=== PATIENT | female | born 1955 | race Caucasian/White ===

== ENCOUNTER 2018-10-04 01:05 | Outpatient (CLI) | payer OTHER, SELFPAY ==
--- NOTE | 2018-10-04 11:29 | DI.MAMMO_ITS ---
SYMPTOMS/DIAGNOSIS: SCREENING, Z12.31 MAMMOGRAMS: Mammograms were interpreted according to the usual protocol including computer analysis with CAD system, tomosynthesis and C view imaging. The breast tissue is composed of scattered fibroglandular densities. There is no dominant mass. There are no suspicious calcifications and there has been no significant interval change when compared with prior images. SUMMARY: No evidence of malignancy, category 1. Yearly screening mammography is recommended. Breast density category B. SA ASSESSMENT OF FINDINGS: Negative. Category 1. Patient will receive a letter notifying them of these results. BI-RADS category B. There are scattered areas of fibroglandular density.
== END 2018-10-04 01:25 ==
DX: Z12.31 Encounter for screening mammogram for malignant neoplasm of breast (principal)
CPT/HCPCS: 77063; 77067

== ENCOUNTER 2018-10-12 01:30 | Outpatient (CLI) | payer OTHER, SELFPAY ==
[2018-10-12 11:31] LABS: ALT 21 U/L (12-78); AST 26 U/L (15-37); Albumin 3.6 g/dL (3.4-5.0); Alkaline Phosphatase 97 U/L (46-116); Anion Gap 7.8 mmol/L (3-11); BUN 17 mg/dL (7-18); Bilirubin, Total 0.6 mg/dL (0.2-1.0); CO2 29.2 mmol/L (21.0-32.0); CREATININE 0.89 mg/dL (0.55-1.02); Calcium 8.9 mg/dL (8.5-10.1); Chloride 105 mmol/L (98-107); Glucose 92 mg/dL (70-100); Potassium 3.8 mmol/L (3.5-5.1); Sodium 142 mmol/L (136-145); TSH (W/Ref FT4) 3.33 uIU/mL (0.358-3.74); Total Protein 6.6 g/dL (6.4-8.2)
== END 2018-10-12 01:50 ==
DX: E03.9 Hypothyroidism, unspecified (principal); E55.9 Vitamin D deficiency, unspecified; Z00.00 Encounter for general adult medical examination without abnormal findings
CPT/HCPCS: 36415; 80053; 84443

== ENCOUNTER 2019-10-25 01:59 | Outpatient (CLI) | payer OTHER, SELFPAY ==
[2019-10-25 11:57] LABS: ALT 21 U/L (14-59); AST 29 U/L (15-37); Albumin 3.5 g/dL (3.4-5.0); Alkaline Phosphatase 95 U/L (46-116); Anion Gap 5.7 mmol/L (3-11); BUN 12 mg/dL (7-18); Bilirubin, Total 0.4 mg/dL (0.2-1.0); CO2 28.3 mmol/L (21.0-32.0); CREATININE 0.78 mg/dL (0.55-1.02); Calcium 8.8 mg/dL (8.5-10.1); Chloride 105 mmol/L (98-107); Glucose 95 mg/dL (74-106); Potassium 4.1 mmol/L (3.5-5.1); Sodium 139 mmol/L (136-145); TSH (W/Ref FT4) 2.92 uIU/mL (0.36-3.74); Total Protein 6.4 g/dL (6.4-8.2)
== END 2019-10-25 02:19 ==
DX: E03.9 Hypothyroidism, unspecified (principal); G47.00 Insomnia, unspecified; Z00.00 Encounter for general adult medical examination without abnormal findings
CPT/HCPCS: 36415; 80053; 84443

== ENCOUNTER 2020-10-09 02:19 | Outpatient (CLI) | payer OTHER, SELFPAY ==
[2020-10-09 10:28] LABS: ALT 25 U/L (14-59); AST 30 U/L (15-37); Albumin 3.8 g/dL (3.4-5.0); Alkaline Phosphatase 101 U/L (46-116); Anion Gap 7.1 mmol/L (3-11); BUN 18 mg/dL (7-18); Bilirubin, Total 0.6 mg/dL (0.2-1.0); CO2 28.9 mmol/L (21.0-32.0); CREATININE 0.9 mg/dL (0.55-1.02); Calcium 8.9 mg/dL (8.5-10.1); Calculated LDL 96 mg/dL (<100); Chloride 107 mmol/L (98-107); Cholesterol 172 mg/dL (<200); Glucose 91 mg/dL (74-106); HDL Cholesterol 67 mg/dL (40-60); Potassium 4.4 mmol/L (3.5-5.1); Sodium 143 mmol/L (136-145); TSH (W/Ref FT4) 1.94 uIU/mL (0.36-3.74); Total Protein 6.9 g/dL (6.4-8.2); Triglyceride 47 mg/dL (<150); Vitamin B12 299 pg/mL (193-986)
== END 2020-10-09 02:20 | disposition home or self-care (01) ==
LOC: LBO 02:19
DX: E03.9 Hypothyroidism, unspecified (principal); D51.8 Other vitamin B12 deficiency anemias; E55.9 Vitamin D deficiency, unspecified; F32.9 Major depressive disorder, single episode, unspecified; Z13.220 Encounter for screening for lipoid disorders; Z00.00 Encounter for general adult medical examination without abnormal findings
CPT/HCPCS: 36415; 80053; 80061; 82306; 82607; 84443

== ENCOUNTER 2020-10-15 01:35 | Outpatient (CLI) | payer OTHER, SELFPAY ==
--- NOTE | 2020-10-15 06:30 | DI.MAMMO_ITS ---
Exam(s) MAMMO SCREENING EXAM: MAMMO SCREENING CLINICAL HISTORY: screening,Z12.39 TECHNIQUE: Bilateral full field digital CC and MLO mammographic images were obtained with 3D tomosyn thesis and utilizing computer aided detection (CAD). COMPARISON: Available for comparison. FINDINGS: Masses/Architectural Distortion: None seen. Microcalcifications: No suspicious pleomorphic-type are seen. Skin Thickening/Nipple Retraction: None. IMPRESSION: 1. No significant interval change with no specific features of malignancy noted. 2. Unless there is more urgent need, screening mammography is recommended, as per [employer] guidelines. BI-RADS Category 1 - Negative Breast Density - Category B - Scattered areas of fibroglandular density Breast density category C or D implies that the patient has dense breast tissue. Dense breast tissue is very common and is not abnormal but dense breast tissue can make it harder to find cancer on a ma mmogram. Also, dense breast tissue may increase their breast cancer risk. This information about the result of the mammogram report was provided to the patient to raise their awareness. Use this report when you speak with the patient about their risks for breast cancer, which includes their family hist ory. At that time, you may recommend for more screening tests (Ultrasound or MRI) as they might be us eful based on their risk. A negative radiographic report should not delay biopsy if a dominant or clinically suspicious mass is present. Up to ten percent of cancers are not identified on mammography. A negative report may reinforce clinical impression. Adenosis and dense breasts may obscure an underlying neoplasm. False positive reports average 6 to 10%. Patient will receive a letter notifying them of these results.
== END 2020-10-15 01:55 ==
DX: Z12.31 Encounter for screening mammogram for malignant neoplasm of breast (principal)
CPT/HCPCS: 77063; 77067

== ENCOUNTER 2021-10-15 03:55 | Outpatient (CLI) | payer MEDICARE, BC, SELFPAY ==
[2021-10-15 11:53] LABS: ALT 21 U/L (14-59); AST 26 U/L (15-37); Albumin 3.8 g/dL (3.4-5.0); Alkaline Phosphatase 107 U/L (46-116); Anion Gap 6.4 mmol/L (3-11); BUN 15 mg/dL (7-18); Bilirubin, Total 0.5 mg/dL (0.2-1.0); CO2 28.6 mmol/L (21.0-32.0); CREATININE 0.9 mg/dL (0.55-1.02); Calcium 8.7 mg/dL (8.5-10.1); Chloride 105 mmol/L (98-107); Glucose 97 mg/dL (74-106); Potassium 3.8 mmol/L (3.5-5.1); Sodium 140 mmol/L (136-145); Total Protein 6.8 g/dL (6.4-8.2)
== END 2021-10-15 03:56 | disposition home or self-care (01) ==
LOC: LBO 03:55
DX: E03.9 Hypothyroidism, unspecified (principal)
CPT/HCPCS: 36415; 80053; 84443

== ENCOUNTER 2021-10-22 00:17 | Outpatient (CLI) | payer MEDICARE, BC, SELFPAY ==
--- NOTE | 2021-10-22 08:00 | DI.MAMMO_ITS ---
Exam(s) MAMMO SCREENING EXAM: MAMMO SCREENING CLINICAL HISTORY: screening,z12.39 TECHNIQUE: Mammograms were interpreted according to the usual protocol including computer analysis w [facility] CAD system, tomosynthesis and C-view imaging. COMPARISON: FINDINGS: The breasts are heterogeneously dense. No dominant mass or clumped microcalcification is identified in either breast. The current examination is compared with previous examinations including October 2020 and there has been no gross interval change in appearance comparison with prior studies. IMPRESSION: No specific evidence of malignancy at this time. Routine screening examinations are suggested at yea rly intervals in this age group according to the ACS ACR guidelines. BI-RADS Category 1 - Negative Breast Density - Category C - Heterogeneously dense
== END 2021-10-22 00:37 ==
DX: Z12.31 Encounter for screening mammogram for malignant neoplasm of breast (principal)
CPT/HCPCS: 77063; 77067

== ENCOUNTER 2022-10-12 10:16 | Outpatient (CLI) | payer MEDICARE, BC, SELFPAY ==
[2022-10-12 12:55] LABS: TSH (W/Ref FT4) 1.42 uIU/mL (0.36-3.74)
== END 2022-10-12 10:17 | disposition home or self-care (01) ==
PROVIDERS: PCP Nurse Practitioner Family; Referring Provider Nurse Practitioner Family; Visit Provider Nurse Practitioner Family
DX: E03.9 Hypothyroidism, unspecified (principal)
CPT/HCPCS: 36415; 84443

== ENCOUNTER 2023-10-18 12:54 | Outpatient (REF) | payer MEDICARE, BC, SELFPAY ==
[2023-10-18 13:15] LABS: TSH (W/Ref FT4) 3.71 uIU/mL (0.36-3.74)
== END 2023-10-18 12:55 | disposition home or self-care (01) ==
LOC: LBN 12:54
PROVIDERS: PCP Nurse Practitioner Family; Visit Provider Nurse Practitioner Family
DX: E03.9 Hypothyroidism, unspecified (principal)
CPT/HCPCS: 84443

== ENCOUNTER 2024-09-06 01:37 | Outpatient (CLI) | payer MEDICARE, BC, SELFPAY ==
--- NOTE | 2024-09-06 08:04 | DI.DEXA_ITS ---
Exam(s) XR DEXA BONE DENSITY W/WO JEAN MARIE EXAM: XR DEXA BONE DENSITY W/WO JEAN MARIE CLINICAL HISTORY: screening for osteoporosis in postmenopausal status,z78.0 TECHNIQUE: [employer] Horizon C densitometer analysis of left hip, lumbar spine and left forearm. Lat eral survey image of the thoracic and lumbar spine. COMPARISON: 2005 FINDINGS: Lateral view of the thoracic and lumbar spine shows no evidence of compression fractures. There are advanced degenerative disc changes with endplate osteophytes and sclerosis which elevate the bone min eral density measurements. Bone mineral density measurements of the lumbar spine correspond to a total T-score of -0.2, in the normal range. This represents a 16.9 percent increase from 2005. Bone mineral density measurements of the left hip correspond to a total T-score of . The femoral ne ck T-score is -1.5, in the osteopenic range. 2005 data from the hip were unable to be retrieved. Theleft forearm bone mineral density measurements correspond to a T-score of the distal 3rd of -3.0, in the osteoporotic range. The forearm was not analyzed in 2004. IMPRESSION: Normal bone mineral density of the lumbar spine. Osteopenia of the hip. Osteoporosis of the forearm .
== END 2024-09-06 01:57 ==
LOC: DI 01:37
PROVIDERS: PCP Nurse Practitioner Family; Visit Provider Nurse Practitioner Family
DX: Z13.820 Encounter for screening for osteoporosis (principal); Z78.0 Asymptomatic menopausal state; M85.89 Other specified disorders of bone density and structure, multiple sites
CPT/HCPCS: 77080

== ENCOUNTER 2024-10-04 13:13 | Outpatient (CLI) | payer MEDICARE, BC, SELFPAY ==
[2024-10-04 13:57] LABS: TSH (W/Ref FT4) 8.72 uIU/mL (0.36-3.74)
[2024-10-04 14:30] LABS: FREE T4 0.72 ng/dL (0.76-1.46)
== END 2024-10-04 13:14 | disposition home or self-care (01) ==
LOC: LBO 13:14
PROVIDERS: PCP Nurse Practitioner Family; Visit Provider Family Medicine
DX: E03.9 Hypothyroidism, unspecified (principal)
CPT/HCPCS: 36415; 84439; 84443

== ENCOUNTER 2024-11-16 00:42 | Outpatient (CLI) | payer MEDICARE, BC, SELFPAY ==
--- NOTE | 2024-11-16 07:30 | DI.US_ITS ---
Exam(s) US SOFT TISSUE HEAD OR NECK EXAM: US SOFT TISSUE HEAD OR NECK CLINICAL HISTORY: left neck swelling, please ID thyroid and glands,[id number]. TECHNIQUE: Ultrasound was performed using standard protocol. COMPARISON: US PELVIS TRANSVAG from 10/10/2017 FINDINGS: Dedicated ultrasound examination of the area of concern in the superior aspect of the left side of th e neck and submental region was performed. There are no significant masses nor fluid collections in the left submental area which is apparently area of concern. The submandibular glands appear unremarkable. No obvious findings in the thyroid g land. There few lymph nodes both sides the neck. The largest of these is in the superior aspect of the lef t side of the neck and measures 1.3 x 0.9 x 0.6 cm and corresponds to the palpable finding. This lym ph node exhibits normal fatty hilum. A few other smaller lymph nodes are also seen lower down in the left side of the neck. Some small lymph nodes also noted in the right-side of the neck. IMPRESSION: Palpable finding in the upper left neck submental region corresponds to a 13 x 9 x 6 mm benign-appear ing lymph node. There are other smaller bilateral lymph nodes in the neck noted. DATA REPOSITORY:
== END 2024-11-16 01:02 ==
LOC: DI 00:42
PROVIDERS: PCP Nurse Practitioner Family; Visit Provider Physician Assistant
DX: D36.0 Benign neoplasm of lymph nodes (principal)
CPT/HCPCS: 76536

== ENCOUNTER 2024-12-07 00:49 | Outpatient (CLI) | payer MEDICARE, BC, SELFPAY ==
[2024-12-07 08:20] LABS: Hemoglobin A1C 6.1 % (<5.7)
[2024-12-07 09:40] LABS: Anion Gap 5.7 mmol/L (3-11); BUN 15 mg/dL (7-18); CO2 31.3 mmol/L (21.0-32.0); CREATININE 0.7 mg/dL (0.55-1.02); Calcium 9.2 mg/dL (8.5-10.1); Calculated LDL 77 mg/dL (<100); Chloride 105 mmol/L (98-107); Cholesterol 154 mg/dL (<200); Estimated GFR 94.15 (mL/min/1.73m2); Glucose 96 mg/dL (74-106); HDL Cholesterol 64 mg/dL (>or=50); Potassium 3.7 mmol/L (3.5-5.1); Sodium 142 mmol/L (136-145); TSH (W/Ref FT4) 0.32 uIU/mL (0.36-3.74); Triglyceride 67 mg/dL (<150)
[2024-12-07 09:59] LABS: FREE T4 1.12 ng/dL (0.76-1.46)
== END 2024-12-07 00:50 | disposition home or self-care (01) ==
PROVIDERS: PCP Nurse Practitioner Family; Visit Provider Nurse Practitioner Family
DX: E11.9 Type 2 diabetes mellitus without complications (principal); E03.9 Hypothyroidism, unspecified; Z13.6 Encounter for screening for cardiovascular disorders; Z13.1 Encounter for screening for diabetes mellitus
CPT/HCPCS: 36415; 80048; 80061; 83036; 84439; 84443